=== PATIENT | male | born 1985 | race Caucasian/White ===

== ENCOUNTER 2023-07-18 11:34 | Outpatient (CLI) | payer SELFPAY ==
--- NOTE | 2023-07-18 11:50 | XRR_ITS ---
PROCEDURE INFORMATION: Exam: XR Right Ankle Exam date and time: 07/18/2023 11:56 AM Age: 37 years old Clinical indication: Pain; Swelling, leg or foot; Ankle; Right; Patient HX: Swollen for about 1 week; Additional info: Pain in R ankle TECHNIQUE: Imaging protocol: Radiologic exam of the right ankle. Views: 3 or more views. COMPARISON: No relevant prior studies available. FINDINGS: Bones/joints: Osseous structures are intact. No fracture or malalignment. Joint surfaces preserved. Soft tissues: Generalized soft tissue swelling adjacent to the mediolateral malleolus. XR/XR ankle RT min 3V* [id number] IMPRESSION: No acute bony abnormalities.
== END 2023-07-18 11:35 | disposition home or self-care (01) ==
PROVIDERS: Visit Provider Family Medicine
DX: M25.571 Pain in right ankle and joints of right foot (principal)
CPT/HCPCS: 73610

== ENCOUNTER 2024-09-05 07:12 | Emergency (ER) | payer SELFPAY ==
[2024-09-05 07:21] VITALS: BP 158/115; PULSE 92; RESP 17; TEMP 36.8; O2SAT 97; BMI 35.9
[2024-09-05 07:50] LABS: Basophils # 0.1 10^3/uL (0.0-0.1); Eosinophils # 0.3 10^3/uL (0.0-0.8); Eosinophils % 2.5 %; Hematocrit 48.8 % (37-53); Lymphocytes # 2.5 10^3/uL (0.8-4.8); Lymphocytes % 22.4 %; Mean Corpuscular HGB Conc 34.4 g/dL (30-55); Mean Corpuscular Hemoglobin 28.5 pg (27-33); Mean Corpuscular Volume 82.9 fl (82-101); Mean Platelet Volume 10.1 fL (7.4-10.4); Monocytes % 8.9 %; Neutrophils % 64.1 %; Nucleated Red Blood Cells % 0 %; Platelet Count 244 10^3/cmm (157-399); Red Blood Count 5.89 10^6/uL (3.85-5.65); Red Cell Distribution Width 13.2 % (12.1-15.1); White Blood Count 11.08 10^3/uL (3.29-11.43)
[2024-09-05 08:00] VITALS: BP 174/101; PULSE 90; O2SAT 94
--- NOTE | 2024-09-05 08:03 | ED_ITS ---
HPI - Back Pain/Injury 2 General: Chief Complaint: Back Pain/Injury Stated Complaint: kidney problems Time Seen by Provider: 09/05/24 07:18 History of Present Illness: 39-year-old male with a history of nephr olithiasis presents emergency room complaining of left-sided flank pain radiating into the left lower quadrant. Worse when he urinates when he bears down to urinate. He does not have any hematuria. He was seen a week ago diagnosed as having a UTI and started on amoxicillin. Despite this he continues to have worsening symptoms and increasing pain. He was diagnosed also recently as being diabetic and started on metformin Associated symptoms: Reports dysuria; Deny abdominal pain, chills, fever(s), hematuria or urinary urgency Related Data Home Medications Medication Instructions Recorded Confirmed allopurinol 100 mg tablet 100 mg PO DAILY 09/05/24 09/05/24 amlodipine 5 mg tablet 5 mg PO DAILY 09/05/24 09/05/24 amoxicillin 875 mg-potassium 1 tab PO BID 09/05/24 09/05/24 clavulanate 125 mg tablet aspirin 81 mg tablet,delayed 81 mg PO DAILY 09/05/24 09/05/24 release (Adult Low Dose Aspirin) atorvastatin 20 mg tablet 20 mg PO DAILY 09/05/24 09/05/24 lisinopril 40 mg tablet 40 mg PO DAILY 09/05/24 09/05/24 metformin 500 mg tablet,extended 500 mg PO BID 09/05/24 09/05/24 release 24 hr Previous Rx's Medication Instructions Recorded diclofenac sodium 75 mg 75 mg PO Q12H PRN pain #20 tabs 09/05/24 tablet,delayed release prednisone 20 mg tablet 20 mg PO TID #15 tabs 09/05/24 tizanidine 4 mg tablet 4 mg PO Q6H PRN muscle spasticity 09/05/24 #20 tabs Allergies Allergy/AdvReac Type Severity Reaction Status Date / Time No Known Allergies Allergy Verified 09/05/24 07:24 Review of Systems 2 Const: Denies: fever(s) or chills Card: Denies: chest pain Resp: Denies: dyspnea GI: Denies: abdominal pain : Reports: flank pain, difficulty urinating and dysuria; Denies: urinary frequency, urinary urgency or hematuria Musc: Denies: neck pain or back pain Skin/Breast: Denies: rash Physical Exam 2 Const: COMMON NORMALS: no acute distress GENERAL APPEARANCE: cooperative and comfortable ORIENTATION/CONSCIOUSNESS: Yes awake, Yes oriented to person, Yes oriented to place and Yes oriented to time HENMT: COMMON NORMALS: normocephalic, atraumatic and hearing grossly normal bilaterally HEAD & SCALP: normocephalic and atraumatic Resp: COMMON NORMALS: normal respiratory effort, No retractions, No use of accessory muscles and clear to auscultation bilaterally AUSCULTATION: clear to auscultation bilaterally Cardio: COMMON NORMALS: regular rate, regular rhythm and No murmurs present (Cardio) RATE: regular rate RHYTHM: regular rhythm GI: COMMON NORMALS: Soft to palpation and No hepatosplenomegaly present A USCULTATION: Yes normoactive bowel sounds PALPATION: Yes Soft to palpation, No Tenderness to palpation present (GI), No Guarding due to palpation present (GI) and Yes No hepatosplenomegaly present Extremity: COMMON NORMALS: normal to inspection, capillary refill normal, no clubbing, cyanosis or edema, no calf tenderness and no pedal edema Neuro: SENSORIUM/ORIENTATION: Yes oriented to person, Yes oriented to place and Yes oriented to time Skin: COMMON NORMALS: no rashes or lesions noted GENERAL SKIN EXAM: no rashes or lesions noted Course 2 Vital Signs: Vital signs: Vital Signs Temperature 98.2 F 09/05/24 07:21 Pulse Rate 75 09/05/24 10:20 Respiratory Rate 17 09/05/24 08:14 Blood Pressure 149/97 09/05/24 10:20 Pulse Oximetry 95 09/05/24 10:20 Oxygen Delivery Me thod Room Air 09/05/24 08:00 MDM - Back Pain/Injury Medical Decision Making No nephrolithiasis no UTI. I think patient's symptoms are due to musculoskeletal. Will discharge patient home on steroid taper muscle relaxers and anti-inflammatories follow-up with primary care if not improving Medical Records I reviewed the patient's medical records. Labs I reviewed the patient's lab results. 09/05/24 07:31 09/05/24 07:31 Radiology Impressions Abdomen/Pelvis CT 09/05/24 08:08 IMPRESSION: 1. Nephrolithiasis on the right. 2. Fatty infiltration of the liver. 3. Borderline splenomegaly. Laboratory Results WBC 11.08 10^3/uL (3.29-11.43) 09/05/24 07:31 RBC 5.89 10^6/uL (3.85-5.65) H 09/05/24 07:31 Hgb 16.80 g/dL (11.27-16.99) 09/05/24 07:31 Hct 48.8 % (37-53) 09/05/24 07:31 MCV 82.9 fl (82-101) 09/05/24 07:31 MCH 28.5 pg (27-33) 09/05/24 07:31 MCHC 34.4 g/dL (30-55) 09/05/24 07:31 RDW 13.2 % (12.1-15.1) 09/05/24 07:31 Plt Count 244 10^3/cmm (157-399) 09/05/24 07:31 MPV 10.1 fL (7.4-10.4) 09/05/24 07:31 Neut % (Auto) 64.1 % 09/05/24 07:31 Lymph % (Auto) 22.4 % 09/05/24 07:31 [place] % (Auto) 8.9 % 09/05/24 07:31 Eos % (Auto) 2.5 % 09/05/24 07:31 Baso % (Auto) 1.0 % 09/05/24 07:31 Neut # (Auto) 7.10 10^3/uL (1.8-7.7) 09/05/24 07:31 Lymph # (Auto) 2.5 10^3/uL (0.8-4.8) 09/05/24 07:31 [place] # (Auto) 1.0 10^3/uL (0.2-0.9) H 09/05/24 07:31 Eos # (Auto) 0.3 10^3/uL (0.0-0.8) 09/05/24 07:31 Baso # (Auto) 0.1 10^3/uL (0.0-0.1) 09/05/24 07:31 Nucleated RBC % (auto) 0 % 09/05/24 07:31 Nucleated RBCs # 0.0 /100WBC 09/05/24 07:31 Sodium 135 mmol/L (136-145) L 09/05/24 07:31 Potassium 4.2 mmol/L (3.5-5.1) 09/05/24 07:31 Chloride 98 mmol/L (98-107) 09/05/24 07:31 Carbon Dioxide 25 mmol/L (22-29) 09/05/24 07:31 Anion Gap 16.2 (5-19) 09/05/24 07:31 BUN 21 mg/dL (6-20) H 09/05/24 07:31 Creatinine 0.7 mg/dL (0.7-1.2) 09/05/24 07:31 GFR Calculation 124.3 mL/min (90-130) 09/05/24 07:31 Glucose 326 mg/dL (65-115) H 09/05/24 07:31 Calculated Osmolality 296 mOsm/kg (285-295) H 09/05/24 07:31 Calcium 9.2 mg/dL (8.5-10.5) 09/05/24 07:31 Total Bilirubin 0.4 mg/dL (0.15-1.2) 09/05/24 07:31 AST 32 U/L (0-40) 09/05/24 07:31 ALT 57 U/L (0-41) H 09/05/24 07:31 Alkaline Phosphatase 105 U/L (40-130) 09/05/24 07:31 Total Protein 6.6 g/dL (6.6-8.7) 09/05/24 07:31 Albumin 4.1 g/dL (3.5-5.2) 09/05/24 07:31 Globulin 2.5 g/dL (1.3-4.6) 09/05/24 07:31 Urine Color Yellow (Yellow) 09/05/24 07:43 Urine Appearance Clear (CLEAR) 09/05/24 07:43 Urine pH 6.5 (5-7) 09/05/24 07:43 Ur Specific [place] 1.022 (1.005-1.030) 09/05/24 07:43 Urine Protein Trace (Negative) A 09/05/24 07:43 Urine Glucose (UA) 3+ (Normal) H 09/05/24 07:43 Urine Ketones Trace (Negative) 09/05/24 07:43 Urine Blood Negative (Negative) 09/05/24 07:43 Urine Nitrate Negative (Negative) 09/05/24 07:43 Urine Bilirubin Negative (Negative) 09/05/24 07:43 Urine Urobilinogen 0.2 mg/dL (Negative) 09/05/24 07:43 Ur Leukocyte Esterase Negative (Negative) 09/05/24 07:43 Urine RBC 0-2 /hpf (0-2) 09/05/24 07:43 Urine WBC 0-5 /hpf (0-5) 09/05/24 07:43 Ur Squamous Epith Cells 0-5 /hpf (0-5) 09/05/24 07:43 Amorphous Sediment Not Reportable 09/05/24 07:43 Urine Bacteria None seen /hpf (NONE) 09/05/24 07:43 Hyaline Casts 0-4 /lpf H 09/05/24 07:43 All radiology interpretation(s) finalized by discharge Discharge Plan Discharge Patient Disposition: Home Clinical Impression: Strain of lumbar region Condition: Stable Prescriptions: New tizanidine 4 mg tablet 4 mg PO Q6H PRN (Reason: muscle spasticity) Qty: 20 0RF Rx Instructions: do not exceed 3 doses per 24 hrs prednisone 20 mg tablet 20 mg PO TID Qty: 15 0RF Rx Instructions: 1 p.o. 3 times daily x3 days, 1 p.o. twice daily x2 days, 1 p.o. daily x2 days diclofenac sodium 75 mg tablet,delayed release (DR/EC) 75 mg PO Q12H PRN (Reason: pain) Qty: 20 0RF No Action atorvastatin 20 mg tablet 20 mg PO DAILY amlodipine 5 mg tablet 5 mg PO DAILY allopurinol 100 mg tablet 100 mg PO DAILY aspirin [Adult Low Dose Aspirin] 81 mg tablet,delayed release (DR/EC) 81 mg PO DAILY lisinopril 40 mg tablet 40 mg PO DAILY metformin 500 mg tablet extended release 24 hr 500 mg PO BID amoxicillin-pot clavulanate 875-125 mg tablet 1 tab PO BID Discharge Orders: Discharge ED (Routine); Ordered 09/05/24 Ordered By: Slava Bauer Discharge Diet: Usual diet Discharge Activity: Increase activity as tolerated Patient Instructions: Acute Low Back Pain (ED), Opioid Safety, Pain Management Activity Restrictions/Additional Instructions: Thank you for choosing [facility] for your healthcare needs today. It is very important that you follow up as instructed or that you return to the Emergency Department should you have concerns or if your condition changes or worsens in any way. Labs and imaging reviewed no acute findings there is no blood in the urine no sign of ureteral lithiasis (kidney stone) as a cause of pain. Coding Level of Care Code ED Whale Trainer for Jose Antonio Thomas
[2024-09-05 08:07] LABS: Alanine Aminotransferase 57 U/L (0-41); Albumin Level 4.1 g/dL (3.5-5.2); Alkaline Phosphatase 105 U/L (40-130); Anion Gap 16.2 (5-19); Aspartate Amino Transferase 32 U/L (0-40); Blood Urea Nitrogen 21 mg/dL (6-20); Calcium 9.2 mg/dL (8.5-10.5); Carbon Dioxide 25 mmol/L (22-29); Chloride 98 mmol/L (98-107); Creatinine Clr Calc Pharmacy 175.1341; Globulin 2.5 g/dL (1.3-4.6); Glomerular Filtration Rate 124.3 mL/min (90-130); Glucose 326 mg/dL (65-115); Osmolality Calculated 296 mOsm/kg (285-295); Potassium 4.2 mmol/L (3.5-5.1); Sodium 135 mmol/L (136-145); Total Bilirubin 0.4 mg/dL (0.15-1.2); Total Protein 6.6 g/dL (6.6-8.7)
--- NOTE | 2024-09-05 08:08 | CTR_ITS ---
PROCEDURE INFORMATION: Exam: CT Abdomen And Pelvis Without Contrast Exam date and time: 09/05/2024 8:21 AM Age: 39 years old Clinical indication: Abdominal pain; Flank; Lower; Additional info: Flank pain. PT states he was diagnosed with a UTI a week and a half ago. PT states he has had increase in lower back pain since being diagnosed. PT denies any urinary issues. TECHNIQUE: Imaging protocol: Computed tomography of the abdomen and pelvis without contrast. Radiation optimization: All CT scans at this facility use at least one of these dose optimization techniques: automated exposure control; mA and/or kV adjustment per patient size (includes targeted exams where dose is matched to clinical indication); or iterative reconstruction. COMPARISON: CR XR chest 2V* [id number] 07/12/2019 12:33 PM RADIATION DOSE METRICS: Total DLP (mGy-cm): 1020.46 FINDINGS: Lungs: Lung bases are clear as visualized. Liver: There is diffuse fatty infiltration of the liver. The liver is otherwise normal. Gallbladder and biliary ducts: Normal. No calcified stones. No ductal dilation. Pancreas: Normal. No ductal dilation. Spleen: The spleen is borderline enlarged measuring 12.2 cm in maximal dimension. Adrenal glands: Normal. No mass. Kidneys and ureters: Nonobstructing renal calculus is noted on the right. The kidneys otherwise have a normal noncontrast appearance. No hydronephrosis is noted. No ureteral calculi are identified. Stomach and bowel: Unremarkable. No obstruction. No mucosal thickening. Appendix: No evidence of appendicitis. Intraperitoneal space: Unremarkable. No free air. No significant fluid collection. Vasculature: The aorta is normal in caliber. There is calcified plaque involving the aorta and its branch vessels. Lymph nodes: Unremarkable. No enlarged lymph nodes. Urinary bladder: Unremarkable as visualized. Reproductive: Unremarkable as visualized. Bones/joints: Unremarkable. No acute fracture. Soft tissues: There is a small fat filled periumbilical hernia. CT/CT kidney stone [id number] IMPRESSION: 1. Nephrolithiasis on the right. 2. Fatty infiltration of the liver. 3. Borderline splenomegaly.
[2024-09-05 08:14] VITALS: RESP 17
[2024-09-05] MEDS: morphine 4 mg/mL SDV 1 mL IVP (08:14)
[2024-09-05] MEDS: ketorolac 30 mg/mL INJ IVP (08:14)
[2024-09-05] MEDS: ondansetron 2 mg/ML SDV 2 mL 4 MG IVP (08:14)
[2024-09-05 08:23] LABS: Bilirubin Urine Negative (Negative); Blood Urine Negative (Negative); Glucose Urine UA 3+ (Normal); Ketones Urine Trace (Negative); Leukocyte Esterase Urine Negative (Negative); Nitrate Urine Negative (Negative); Protein Urine Trace (Negative); Specific Gravity, Urine 1.022 (1.005-1.030); Urine Appearance Clear (CLEAR); Urine Color Yellow (Yellow); Urobilinogen Urine 0.2 mg/dL (Negative); pH Urine 6.5 (5-7)
[2024-09-05 08:27] LABS: Add Urine Microscopic? YES; Bacteria Urine None Seen /hpf; Hyaline Casts Urine 0-4 /lpf; RBC Urine 0-2 /hpf (0-2); Squamous Epithelial Cell Urine 0-5 /hpf (0-5); WBC Urine 0-5 /hpf (0-5)
[2024-09-05 10:20] VITALS: BP 149/97; PULSE 75; O2SAT 95
== END 2024-09-05 10:21 | disposition home or self-care (01) ==
PROVIDERS: Emergency Provider Family Medicine
DX: S39.012A Strain of muscle, fascia and tendon of lower back, initial encounter (principal); X58.XXXA Exposure to other specified factors, initial encounter
CPT/HCPCS: 74176; 80053; 81001; 85025; 96374; 96375; 99285; J1885; J2270; J2405

== ENCOUNTER 2025-03-10 20:54 | Emergency (ER) | payer SELFPAY ==
[2025-03-10 20:58] VITALS: BP 188/106; PULSE 106; RESP 21; TEMP 36.8; O2SAT 95; BMI 33.0
[2025-03-10 21:38] VITALS: PULSE 94; O2SAT 97
[2025-03-10] MEDS: tetracaine 0.5% Op Soln 4 mL Btl 1 DROP EYE-BOTH (22:00)
--- NOTE | 2025-03-10 22:24 | W.ED.EYEPROB ---
HPI - Eye Problem General: Chief complaint: Eye Problems Stated complaint: L eye pain Time Seen by Provider: 03/10/25 21:25 History of Present Illness: Patient is a 39-year-old male seen for left eye pain. He was using a saws all to cut metal wearing safety glasses but he still felt a piece of metal fly up and catching in the left eye. This happened at roughly 2:30 PM today. He tried going to the director account management office but unfortunately the director account management was not in the office to evaluate. He comes emergency department with a tearful, painful left eye. He describes 8 of 10 pain which is worse with motion and blinking. He states that he feels a foreign body sensation at the 10 o'clock position that is worse with opening closing the eyelid. No he states vision is unaffected in the eye. He does not wear contacts and he has no allergies. Related Data Home Medications ?Medication ?Instructions ?Recorded ?Confirmed allopurinol 100 mg tablet 100 mg PO DAILY 09/05/24 09/05/24 amlodipine 5 mg tablet 5 mg PO DAILY 09/05/24 09/05/24 amoxicillin 875 mg-potassium 1 tab PO BID 09/05/24 09/05/24 clavulanate 125 mg tablet aspirin 81 mg tablet,delayed 81 mg PO DAILY 09/05/24 09/05/24 release (Adult Low Dose Aspirin) atorvastatin 20 mg tablet 20 mg PO DAILY 09/05/24 09/05/24 lisinopril 40 mg tablet 40 mg PO DAILY 09/05/24 09/05/24 metformin 500 mg tablet,extended 500 mg PO BID 09/05/24 09/05/24 release 24 hr Previous Rx's ?Medication ?Instructions ?Recorded diclofenac sodium 75 mg 75 mg PO Q12H PRN pain #20 tabs 09/05/24 tablet,delayed release prednisone 20 mg tablet 20 mg PO TID #15 tabs 09/05/24 tizanidine 4 mg tablet 4 mg PO Q6H PRN muscle spasticity 09/05/24 #20 tabs moxifloxacin 0.5 % eye drops 1 drp ophthalmic (eye) TID 03/10/25 abrasion 3 days #3 mL Allergies Allergy/AdvReac Type Severity Reaction Status Date / Time No Known Allergies Allergy Verified 09/05/24 07:24 Physical Exam Const: COMMON NORMALS: no acute distress, patient oriented x3 and alert HENMT: COMMON NORMALS: normocephalic and atraumatic HEAD & SCALP: normocephalic and atraumatic Eye: OTHER: Left eye is somewhat injected and excessively tearing. No foreign body noted. 2 mm circular corneal abrasion noted at the 6 o'clock position just above the limbus. Lids were everted and swept and no foreign body noted. No other corneal abrasions noted on fluorescein exam. Negative Ana Maria sign. Vision intact and stable Resp: COMMON NORMALS: normal respiratory effort and No retractions Cardio: COMMON NORMALS: regular rate, regular rhythm and No murmurs present (Cardio) RATE: regular rate RHYTHM: regular rhythm GI: COMMON NORMALS: Normal to inspection, nondistended, normoactive bowel sounds present, Soft to palpation and non-tender PALPATION: Yes Soft to palpation Neuro: COMMON NORMALS: patient oriented x3 SENSORIUM/ORIENTATION: Yes alert Skin: COMMON NORMALS: no rashes or lesions noted GENERAL SKIN EXAM: no rashes or lesions noted Course Vital Signs: Vital signs: Vital Signs Temperature 98.2 F 03/10/25 20:58 Pulse Rate 92 03/10/25 23:11 Respiratory Rate 21 H 03/10/25 20:58 Blood Pressure 145/111 03/10/25 23:11 Pulse Oximetry 98 03/10/25 23:11 Oxygen Delivery Me thod Room Air 03/10/25 20:58 MDM - Eye Problem Medical Decision Making Patient remained hemodynamically stable throughout ED course. I appreciate a corneal abrasion but was not able to visualize a foreign body for removal. Symptoms are much better with tetracaine. He will be given a prescription for moxifloxacin and close follow-up to ophthalmology in the morning. I spoke with on-call pathology who graciously agrees to visit with the patient tomorrow morning at 8 AM. He will be given a work note so that he can facilitate this visit. Patient shows good understanding and agrees to the plan No radiology studies performed this visit Discharge Plan Discharge Patient Disposition: Home Clinical Impression: Corneal abrasion Condition: Stable Prescriptions: New moxifloxacin 0.5 % drops 1 drp ophthalmic (eye) TID 3 Days Qty: 3 0RF No Action atorvastatin 20 mg tablet 20 mg PO DAILY amlodipine 5 mg tablet 5 mg PO DAILY allopurinol 100 mg tablet 100 mg PO DAILY aspirin [Adult Low Dose Aspirin] 81 mg tablet,delayed release (DR/EC) 81 mg PO DAILY lisinopril 40 mg tablet 40 mg PO DAILY metformin 500 mg tablet extended release 24 hr 500 mg PO BID amoxicillin-pot clavulanate 875-125 mg tablet 1 tab PO BID tizanidine 4 mg tablet 4 mg PO Q6H PRN (Reason: muscle spasticity) Qty: 20 0RF Rx Instructions: do not exceed 3 doses per 24 hrs prednisone 20 mg tablet 20 mg PO TID Qty: 15 0RF Rx Instructions: 1 p.o. 3 times daily x3 days, 1 p.o. twice daily x2 days, 1 p.o. daily x2 days diclofenac sodium 75 mg tablet,delayed release (DR/EC) 75 mg PO Q12H PRN (Reason: pain) Qty: 20 0RF Discharge Orders: Discharge ED (Routine); Ordered 03/10/25 Ordered By: Cesar Arauz Referrals: Mya Armenta, ENVIRONMENTAL SERVICES PROJECT MANAGER [Primary Care Provider] - Marito Arauz [Physician] - (spoke with dr arauz, will see in clinic 03/11 at 0800) Patient Instructions: Corneal Abrasion (ED) Activity Restrictions/Additional Instructions: I spoke with Dr. Arauz the [facility] director who says he can get you in his clinic tomorrow morning at 8 AM to make sure your eye is healing appropriately and there is no foreign body I was unable to detect. Stand Alone Forms: Work/School Release Print Language: Setswana Coding Level of Care Code ED Student Teacher for Jose Antonio Thomas
[2025-03-10] MEDS: fluorescein 1 mg Strip EYE-BOTH (23:10)
[2025-03-10 23:11] VITALS: BP 145/111; PULSE 92; O2SAT 98
== END 2025-03-10 23:13 | disposition home or self-care (01) ==
PROVIDERS: Emergency Provider Student in an Organized Health Care Education/Training Program; PCP Nurse Practitioner Family
DX: S05.02XA Injury of conjunctiva and corneal abrasion without foreign body, left eye, initial encounter (principal); Z79.82 Long term (current) use of aspirin; Z79.84 Long term (current) use of oral hypoglycemic drugs; X58.XXXA Exposure to other specified factors, initial encounter
CPT/HCPCS: 99283; J9999

== ENCOUNTER 2025-07-26 19:58 | Inpatient (IN) | payer SELFPAY ==
[2025-07-26 20:12] VITALS: BP 128/72; PULSE 106; RESP 22; TEMP 37.7; O2SAT 98; BMI 32.3
[2025-07-26 21:06] LABS: Glucose Urine UA Trace (Normal); Nitrate Urine Negative (Negative)
[2025-07-26 21:09] LABS: Add Urine Microscopic? YES
[2025-07-26 21:22] LABS: Specific Gravity, Urine 1.032 (1.005-1.030)
[2025-07-26 21:23] LABS: Hematocrit 41.0 % (37-53); Hemoglobin 14.30 g/dL (11.27-16.99); Mean Corpuscular HGB Conc 34.9 g/dL (30-55); Mean Corpuscular Hemoglobin 27.6 pg (27-33); Mean Corpuscular Volume 79.2 fl (82-101); Nucleated Red Blood Cells % 0 %; Platelet Count 240 10^3/cmm (157-399); Red Blood Count 5.18 10^6/uL (3.85-5.65); White Blood Count 16.12 10^3/uL (3.29-11.43)
[2025-07-26 21:23] LABS: UA Slide Review UA Slide Review Perf
[2025-07-26 21:59] LABS: Alanine Aminotransferase 46 U/L (0-41); Albumin Level 3.6 g/dL (3.5-5.2); Alkaline Phosphatase 176 U/L (40-130); Anion Gap 17.4 (5-19); Aspartate Amino Transferase 28 U/L (0-40); Blood Urea Nitrogen 9 mg/dL (6-20); Calcium 9.3 mg/dL (8.5-10.5); Carbon Dioxide 25 mmol/L (22-29); Chloride 91 mmol/L (98-107); Creatinine Clr Calc Pharmacy 164.5451; Globulin 3.3 g/dL (1.3-4.6); Glucose 319 mg/dL (65-115); Lipase 27 U/L (13-60); Osmolality Calculated 281 mOsm/kg (285-295); Potassium 3.4 mmol/L (3.5-5.1); Sodium 130 mmol/L (136-145); Total Protein 6.9 g/dL (6.6-8.7)
--- NOTE | 2025-07-26 23:12 | ED_ITS ---
HPI - Male Genitourinary 2 General: Chief complaint: Urogenital-Male Stated complaint: Possible kidney stones. hurts Lt side back and Time Seen by Provider: 07/26/25 23:07 History of Present Illness: Patient is a 40-year-old male with history of renal colic and urolithiasis, however the last one was 5 years ago, reports to the emergency room with passing 4 stones this week. Patient passed a stone just prior to arrival he states. He has fever, chills, nausea, left flank pain. He denies any dysuria. Urine analysis shows pyuria. There is no hematuria. He has not had any nausea or vomiting since he has been here. Temperature in triage 99.8 ?F. Associated symptoms: Reports dysuria and nausea; Deny hematuria or vomiting Related Data Home Medications ?Medication ?Instructions ?Recorded ?Confirmed aspirin 81 mg tablet,delayed 81 mg PO DAILY 09/05/24 0 07/27/25 release (Adult Low Dose Aspirin) atorvastatin 20 mg tablet 20 mg PO DAILY 09/05/2407/14 lisinopril 40 mg tablet 40 mg PO DAILY 09/05/2407/14 metformin 500 mg tablet,extended 500 mg PO BID 4 07/27/25 release 24 hr Previous Rx's ?Medication ?Instructions ?Recorded tizanidine 4 mg tablet 4 mg PO Q6H PRN muscle spast icity 09/05/24 #20 tabs apixaban 5 mg tablet (Eliquis) 5 mg PO BID 30 days #60 tabs 07/28/25 ciprofloxacin HCl 500 mg tablet 500 mg PO BID 7 days # 14 tabs 07/29/25 Allergies Allergy/AdvReac Type Severity Reaction Status Date / Time peanut butter Allergy ALGY-Rash Uncoded 07/27/25 03:25 Review of Systems 2 Const: Denies: fever(s) or chills Card: Denies: chest pain Resp: Denies: dyspnea GI: Reports: nausea; Denies: abdominal pain or vomiting : Reports: flank pain, difficulty urinating and dysuria; Denies: urinary frequency, urinary urgency or hematuria Musc: Denies: neck pain or back pain Skin/Breast: Denies: rash Neuro: Denies: headache(s), numbness in extremities, weakness in extremities, lack of coordination or difficulty walking Physical Exam 2 Const: COMMON NORMALS: no acute distress, patient oriented x3 and alert HENMT: COMMON NORMALS: normocephalic and atraumatic HEAD & SCALP: n ormocephalic and atraumatic Resp: COMMON NORMALS: normal respiratory effort and No retractions Cardio: COMMON NORMALS: regular rate, regular rhythm and No murmurs present (Cardio) RATE: regular rate RHYTHM: regular rhythm GI: COMMON NORMALS: Normal to inspection, nondistended, normoactive bowel sounds present, Soft to palpation and non-tender PALPATION: Yes Soft to palpation : BLADDER/KIDNEY EXAM: Yes CVA tenderness on the left Back/Pelvis: GENERAL BACK: Yes CVA tenderness Neuro: COMMON NORMALS: patient oriented x3 SENSORIUM/ORIENTATION: Yes alert Skin: COMMON NORMALS: no rashes or lesions noted GENERAL SKIN EXAM: no rashes or lesions noted Course 2 Vital Signs: Vital signs: Vital Signs Temperature 97.6 F 07/29/25 08:03 Pulse Rate 71 07/29/25 08:03 Respiratory Rate 18 07/29/25 08:03 Blood Pressure 133/89 07/29/25 08:03 Pulse Oximetry 96 07/29/25 08:03 Oxygen Delivery Me thod Room Air 07/29/25 08:03 Oxygen Flow Rate 1 07/27/25 01:30 [facility] - Male Medical Decision Making Patient is 40-year-old male with history of renal colic, now reports urolithiasis he has passed x 4 since . He passed a stone just prior to admission. He complained of left flank pain. He does have pyuria on urine analysis. He will be treated with Rocephin. CT abdomen pelvis without contrast to further discern any additional findings such as obstructive uropathy was obtained. This is currently pending. Case turned over to Dr. Emery. Medical Records I reviewed the patient's medical records. Lab Data I reviewed the patient's lab results. 07/29/25 04:57 07/29/25 04:57 Radiology Impressions Abdomen/Pelvis CT 07/27/25 09:10 IMPRESSION: 1. Abnormal mixed density, mostly hypodense filling defect and expansion of left renal vein compatible with thrombosis extending for a length of 5-6 cm, extending proximally to at least mid left renal vein. Distal left renal vein and confluence with inferior vena cava appear patent. Some hypodensity, thrombosis of left testicular vein not excluded. 2. Evidence of left perinephric stranding, fluid extending inferiorly to patient's pelvis on the left side. Evidence of wall thickening and/or enhancement left renal collecting system, left renal pelvis, left ureter. Correlate for pyelo ureteritis or other process. 3. Mild diffuse wall thickening urinary bladder. Correlate for inflammation, cystitis, urinary tract and action, or other process. 4. 9-10 mm rounded soft tissue density filling defect along posterior, dependent gallbladder, possibly soft stone/sludge ball versus polyp or other lesion. Correlation with nonemergent ultrasound scan recommended. 5. Atherosclerotic disease perhaps more advanced than expected for age. Correlate for causes, risk factors for atherosclerotic disease. 6. Hepatosplenomegaly. 7. Diffuse fatty liver, hepatic steatosis. 8. Bibasilar infiltrate and/or atelectasis lung bases. 9. On the uppermost axial image, 6-7 mm subsolid nodule right lung base, probably in the lateral right middle lobe, axial series 3, image 1, partially included. Recommend CT Chest at 3-6 months to confirm persistence of the nodule. If unchanged and solid component remains < 6 mm, annual CT Chest should be performed for 5 years. (Reference: Tricia) 10. Nonobstructing stone/calculus right kidney. 11. Please see body of report for additional findings. REFERENCES: Tricia Rodriguez, et al. Guidelines for Management of Incidental Pulmonary Nodules Detected on CT Images: From the Fleischner Society 2017. Radiology. 2017;284(1):228-243. Gallbladder Ultrasound 07/28/25 10:06 IMPRESSION: 1. Quality is limited by body habitus. 2. Normal size gallbladder with stones and sludge. No wall thickening or pericholecystic fluid. No evidence for acute cholecystitis. 3. Hepatomegaly and hepatic steatosis. Chest X-Ray 07/28/25 15:38 IMPRESSION: No significant abnormality. Laboratory Results WBC 16.12 10^3/uL (3.29-11.43) H 07/26/25 21:17 RBC 5.18 10^6/uL (3.85-5.65) 07/26/25 21:17 Hgb 14.30 g/dL (11.27-16.99) 07/26/25 21:17 Hct 41.0 % (37-53) 07/26/25 21:17 MCV 79.2 fl (82-101) L 07/26/25 21:17 MCH 27.6 pg (27-33) 07/26/25 21:17 MCHC 34.9 g/dL (30-55) 07/26/25 21:17 RDW 13.2 % (12.1-15.1) 07/26/25 21:17 Plt Count 240 10^3/cmm (157-399) 07/26/25 21:17 MPV 9.9 fL (7.4-10.4) 07/26/25 21:17 Neut % (Auto) 77.7 % 07/26/25 21:17 Lymph % (Auto) 13.5 % 07/26/25 21:17 [place] % (Auto) 6.0 % 07/26/25 21:17 Eos % (Auto) 0.7 % 07/26/25 21:17 Baso % (Auto) 0.5 % 07/26/25 21:17 Neut # (Auto) 12.52 10^3/uL (1.8-7.7) H 07/26/25 21:17 Lymph # (Auto) 2.2 10^3/uL (0.8-4.8) 07/26/25 21:17 [place] # (Auto) 1.0 10^3/uL (0.2-0.9) H 07/26/25 21:17 Eos # (Auto) 0.1 10^3/uL (0.0-0.8) 07/26/25 21:17 Baso # (Auto) 0.1 10^3/uL (0.0-0.1) 07/26/25 21:17 Nucleated RBC % (auto) 0 % 07/26/25 21:17 Nucleated RBCs # 0.0 /100WBC 07/26/25 21:17 Sodium 130 mmol/L (136-145) L 07/26/25 21:17 Potassium 3.4 mmol/L (3.5-5.1) L 07/26/25 21:17 Chloride 91 mmol/L (98-107) L 07/26/25 21:17 Carbon Dioxide 25 mmol/L (22-29) 07/26/25 21:17 Anion Gap 17.4 (5-19) 07/26/25 21:17 BUN 9 mg/dL (6-20) 07/26/25 21:17 Creatinine 0.7 mg/dL (0.7-1.2) 07/26/25 21:17 GFR Calculation 123.7 mL/min (90-130) 07/26/25 21:17 Glucose 319 mg/dL (65-115) H 07/26/25 21:17 Calculated Osmolality 281 mOsm/kg (285-295) L 07/26/25 21:17 Calcium 9.3 mg/dL (8.5-10.5) 07/26/25 21:17 Total Bilirubin 0.9 mg/dL (0.15-1.2) 07/26/25 21:17 AST 28 U/L (0-40) 07/26/25 21:17 ALT 46 U/L (0-41) H 07/26/25 21:17 Alkaline Phosphatase 176 U/L (40-130) H 07/26/25 21:17 C-Reactive Protein 99.1 mg/L (0.0-4.9) H 07/26/25 21:17 Total Protein 6.9 g/dL (6.6-8.7) 07/26/25 21:17 Albumin 3.6 g/dL (3.5-5.2) 07/26/25 21:17 Globulin 3.3 g/dL (1.3-4.6) 07/26/25 21:17 Lipase 27 U/L (13-60) 07/26/25 21:17 Urine Color Dark yellow (Yellow) A 07/26/25 20: Urine Appearance Turbid (CLEAR) A 07/26/25 20:51 Urine pH 6.0 (5-7) 07/26/25 20:51 Ur Specific [place] 1.032 (1.005-1.030) H 07/26/25 20:51 Urine Protein 2+ (Negative) A 07/26/25 20: Urine Glucose (UA) Trace (Normal) H 07/26/25 20:51 Urine Ketones Trace (Negative) 07/26/25 20:51 Urine Blood Non-haemolysed trace (Negative) 07/26/25 20:51 Urine Nitrate Negative (Negative) 07/26/25 20: Urine Bilirubin Negative (Negative) 07/26/25 20:51 Urine Urobilinogen 1.0 mg/dL (Negative) 07/26/25 20:51 Ur Leukocyte Esterase 2+ (Negative) A 07/26/25 20:51 Urine RBC 0-2 /hpf (0-2) 07/26/25 20:51 Urine WBC >100 /hpf (0-5) H 07/26/25 20:51 Ur Squamous Epith Cells 0-5 /hpf (0-5) 07/26/25 20:51 Amorphous Sediment Not Reportable 07/26/25 20:51 Urine Bacteria 4+ /hpf (NONE) H 07/26/25 20:51 Hyaline Casts 3.01 /lpf 07/26/25 20:51 All radiology interpretation(s) finalized by discharge Discharge Plan Discharge Patient Disposition: Admitted As Inpatient Admit Provider: Michelle Colon Clinical Impression: Renal colic on left side, Pyuria, Leukocytosis Condition: Stable Discharge Diet: Full LIquid Coding Level of Care Code ED Supply Person for Jose Antonio Thomsa
[2025-07-26 23:15] VITALS: BP 131/76; PULSE 104; O2SAT 96
--- NOTE | 2025-07-26 23:29 | CTR_ITS ---
PROCEDURE INFORMATION: Exam: CT Abdomen And Pelvis Without Contrast Exam date and time: 07/27/2025 12:05 AM Age: 40 years old Clinical indication: Abdominal pain; C/O left flank pain. History of pig tail ureteral stent placement. ; Additional info: Renal colic TECHNIQUE: Imaging protocol: Computed tomography of the abdomen and pelvis without contrast. Radiation optimization: All CT scans at this facility use at least one of these dose optimization techniques: automated exposure control; mA and/or kV adjustment per patient size (includes targeted exams where dose is matched to clinical indication); or iterative reconstruction. COMPARISON: CT kidney stone [id number] 09/05/2024 8:21 AM RADIATION DOSE METRICS: Total DLP (mGy-cm): 929.54 FINDINGS: Lungs: Moderate bibasilar atelectasis. Right basilar granulomata. Heart: Heart size is within normal limits. There is no pericardial effusion or pericardial thickening. Liver: There is diffuse decreased attenuation of the hepatic parenchyma consistent with fatty infiltration. The liver is enlarged. Gallbladder and biliary ducts: Gallbladder is contracted. Gallstones are identified within the gallbladder. There is no evidence of cholelithiasis. The liver is otherwise normal. There are no hepatic masses identified. Pancreas: The pancreas is normal. Spleen: The spleen is normal. Adrenal glands: The adrenal glands are normal. Kidneys and ureters: 6 mm right mid renal calculus. No left renal calcifications. No hydronephrosis. Hyperdensity within the left renal vein likely reflecting renal vein thrombosis. There or associated moderate left perinephric changes. Stomach and bowel: Mild colonic diverticulosis without diverticulitis. There is no large or small bowel obstruction. There is no evidence of bowel wall thickening. Appendix: A normal appendix is identified. Intraperitoneal space: No inflammatory changes are identified. There is no free fluid or fluid collection seen. There is no pneumoperitoneum. Vasculature: Atherosclerotic calcifications of the aorta are present. No aneurysm is identified. Lymph nodes: Mildly prominent bilateral inguinal lymph nodes. No enlarged lymph nodes are identified. Urinary bladder: The bladder is unremarkable. Reproductive: The prostate is grossly unremarkable. Bones/joints: No acute osseous abnormalities are seen. Soft tissues: Tiny periumbilical hernia containing only fat. Small bilateral inguinal hernias containing only fat are present. CT/CT kidney stone [id number] IMPRESSION: 1. Hyperdensity within the left renal vein likely reflecting renal vein thrombosis. There are associated moderate left perinephric changes. Recommend further evaluation with contrast-enhanced CT. 2. Other nonemergent findings above. COMMENTS: Consistent with the [employer]'s Incidental Findings Committee white paper (J Am Di Radiol 2018): Any incidental renal lesion less than 1 cm or classified as too small to characterize, or any incidental cystic renal lesion characterized as simple-appearing, is likely benign. No follow-up imaging is recommended for these lesions per consensus recommendations based on imaging criteria.
[2025-07-27] VITALS (14 sets, daily range): BP systolic 113–164; BP diastolic 69–102; PULSE 79–104; RESP 17–19; TEMP 36.5–38.9; O2SAT 94–98; BMI 33.7
[2025-07-27] MEDS: ondansetron 2 mg/ML SDV 2 mL 4 MG IVP (00:17)
[2025-07-27] MEDS: cefTRIAXone 1,000 mg SDV 1000 MG IVP (00:17)
[2025-07-27] MEDS: morphine 4 mg/mL SDV 1 mL IVP ×3 (02:20→23:50)
--- NOTE | 2025-07-27 03:02 | P.HP_ITS ---
Providers/Chief Complaint 2 Admitting Physician: SHRUTHI TUTTLE DO--- patient seen and evaluated after 12 midnight Primary Care Provider: Mya Armenta Chief Complaint: Possible kidney stones. hurts Lt side back and History of Present Illness Mikhail Alford is a 40 year old male with medical history significant for hyperlipidemia, hypertension, diabetes type 2, history of kidney stone 6 years ago and another in the last 1 week where the patient had passed 4 kidney stones within the last 7 days. Patient pain had been characterized by left flank pain radiating into the left groin. Patient came to the emergency room because of excruciating pain seeking optimization of care and evaluation. Patient had not taken any of the stones to any provider to find out what kind of stone he has been making. Patient denies any febrile illness. In the emergency room this morning patient had undergone CT scan with renal protocol looking for stone there was not. However the out was finding of left renal vein thrombosis likely reactive and secondary to infection. Urinalysis was significant for greater than 100 WBC. There was leukocytosis of 16,000. He has high inflammatory markers of C-reactive protein of 99. Patient received a gram of ceftriaxone antibiotics in the emergency room. I have seen and evaluated patient he is in much excruciating pain I have initiated anti-inflammatory using Toradol 30 mg IV Q6 scheduled not to exceed for 5 days and then the is morphine 4 mg IV every 4 hours as needed for breakthrough pain. Must continue to treat and follow inflammatory markers for care. Patient had received therapeutic Lovenox in the emergency room and followed up with patient to be on plain heparin drip for now and this can be transitioned to Eliquis if appropriate in the next couple of days at discharge for the renal vein thrombosis.. Review of Systems 2 Narrative: Stain review upon 10 organ reviewed we are only significant for renal system disorder otherwise unremarkable. Medications/Allergies Home Medications ?Medication ?Instructions ?Recorded ?Confirmed ?Last Taken ?Type aspirin 81 mg tablet,delayed 81 mg PO DAILY 09/05/24 0 07/27/25 07/26/25 08:00 History release (Adult Low Dose Aspirin) atorvastatin 20 mg tablet 20 mg PO DAILY 09/05/2407/1407/26/25 08:00 History lisinopril 40 mg tablet 40 mg PO DAILY 09/05/2407/1407/26/25 08:00 History metformin 500 mg tablet,extended 500 mg PO BID 4 07/27/25 07/26/25 08:00 History release 24 hr tizanidine 4 mg tablet 4 mg PO Q6H PRN muscle spast icity 09/05/24 07/27/25 Unknown Rx #20 tabs Allergies Allergy/AdvReac Type Severity Reaction Status Date / Time peanut butter Allergy ALGY-Rash Uncoded 07/27/25 03:25 Vitals/I&O/Wt Last Vital Signs Temp 99.8 F H 07/26/25 20:12 Pulse 87 07/27/25 02:21 Resp 17 07/27/25 02:20 BP 113/69 07/27/25 02:21 Pulse Ox 94 07/27/25 02:21 O2 Del Method Room Air 07/27/25 02:21 O2 Flow Rate 1 07/27/25 01:30 07/26/25 07/26/25 07/27/25 14:59 22:59 06:59 Intake Total 1000 / 1000 Balance 1000 / 1000 Weight last 48 hrs Weight 102.058 kg Physical Exam 2 Narrative: Patient looks to be in pain but able to get out of the stretcher and walk not having antalgic gait. HEENT normocephalic/atraumatic neck neck is supple cardiovascular heart rate is regular lungs are clear abdomen is soft nontender nondistended unremarkable extremities are intact. No edema has good pulses neurology has no focality lab studies lab studies reviewed and noted significant for leukocytosis with elevated inflammatory markers likely C-reactive protein with infected urine. Data 07/27/25 02:45 07/26/25 21:17 Micro: Microbiology 07/27/25 02:49 Blood Culture - Preliminary Blood SPECIMEN COLLECTED 07/27/25 02:45 Blood Culture - Preliminary Blood SPECIMEN COLLECTED A&P Assessment and plan 1. Acute pyelonephritis: 2. Left flank pain: 3. Thrombosis vein, renal: 4. Kidney calculi: 5. Diabetes type 2: 6. Hyperlipidemia: 7. Hypertension: Plan: #1 Acute pyelonephritis - Admit to inpatient on [facility] floor - Initiate IV antibiotics, first dose given in the emergency room - IV hydration to follow - Pain management with anti-inflammatory using Toradol 30 mg Q6 not to exceed 5 days - Continue morphine 4 mg IV every 4 hours for breakthrough pain #2 Left flank pain with radiation to the left groin - Features of kidney stone - Patient had been passing stone for the past 7 days to a total of 4 stones - Must continue to treat and care with IV fluid and pain management - CT with renal protocol at the time of presentation did not find any stone likely was passed - Patient does have burden of infection was continue with IV antibiotics #3 Leukocytosis - This is secondary to pyelonephritis - Must continue to treat and optimize - Treat infection follow through with IV hydration leukocytosis will respond #4 Left renal vein thrombosis - This likely is due to all secondary to infection - Anticoagulation initiated patient is on heparin drip this can be transition into Eliquis will need to follow through with cooling off phase #5 Chronic illness such as hyperlipidemia/diabetes type 2/hypertension/recurrent kidney stone - Update patient medication and oncoming provider to restart patient home medication once nursing service Had completed updating home medication Patient had been told anytime he has kidney stone passed he needs to take it to a provider for analysis of the stone so that we know what stone he makes we can combat that. #6 GI and DVT prophylaxis in place PDMP PDMP Reviewed: Last Reviewed 07/27/25 06:00 by Shruthi Tuttle MD Attestations 2 Medical Necessity Statement*: Patient with pyelonephritis, renal stones with right renal thrombosis with high inflammatory markers preserves 2 midnights stay for optimization of care. Patient has criteria for inpatient hospitalization. Coding Level of Care Code 60962 Diagnoses Acute pyelonephritis N10 Left flank pain R10.9 Thrombosis vein, renal I82.3 Kidney calculi N20.0 Diabetes type 2 E11.9 Hyperlipidemia E78.5 Hypertension I10 Time Spent (min) 60
[2025-07-27 03:04] LABS: Platelet Count 224 10^3/cmm (157-399)
[2025-07-27] MEDS: heparin 5,000 unit/mL INJ 1 mL IVP ×3 (03:50→18:30)
[2025-07-27] MEDS: heparin drip 25,000 UNIT/500 ML PREMIX 29 UNIT IV (03:51)
[2025-07-27 04:19] LABS: Partial Thromboplastin Time 25.1 SECONDS (23.9-36.7)
--- NOTE | 2025-07-27 09:10 | CTR_ITS ---
PROCEDURE INFORMATION: Exam: CT Abdomen And Pelvis With Contrast Exam date and time: 07/27/2025 10:50 AM Age: 40 years old Clinical indication: Other: Renal thrombosis seen on non contrast CT, please refer to non contrast CT TECHNIQUE: Imaging protocol: Computed tomography of the abdomen and pelvis with contrast. Radiation optimization: All CT scans at this facility use at least one of these dose optimization techniques: automated exposure control; mA and/or kV adjustment per patient size (includes targeted exams where dose is matched to clinical indication); or iterative reconstruction. Contrast material: OMNI 350; Contrast volume: 100 ml; Contrast route: INTRAVENOUS (IV); COMPARISON: CT kidney stone [id number] 07/27/2025 12:05 AM RADIATION DOSE METRICS: Total DLP (mGy-cm): 1031.23 FINDINGS: Lungs: Bibasilar infiltrate and/or atelectasis lungs bilaterally. Evidence of calcified granulomata right lung. On the uppermost axial image, 6-7 mm subsolid nodule right lung base, probably in the lateral right middle lobe, axial series 3, image 1, partially included. Recommend CT Chest at 3-6 months to confirm persistence of the nodule. If unchanged and solid component remains < 6 mm, annual CT Chest should be performed for 5 years. (Reference: Tricia) Liver: Liver appears enlarged, mixed density, slightly hypodense suggesting diffuse fatty liver, hepatic steatosis. Gallbladder and biliary ducts: 9-10 mm rounded soft tissue density filling defect along posterior, dependent gallbladder, possibly soft stone/sludge ball versus polyp or other lesion. Correlation with nonemergent ultrasound scan recommended. No additional gallbladder wall thickening or pericholecystic fluid seen. No bile duct dilatation seen. Pancreas: Pancreas unremarkable. Pancreas unremarkable. Spleen: Spleen appears prominent for size measured at about 15 cm length. Adrenal glands: Adrenals unremarkable. Adrenals unremarkable. Kidneys and ureters: Hypodense foci of the kidneys, too small to accurately characterize. Evidence of left perinephric stranding, fluid extending inferiorly to patient's pelvis on the left side. Evidence of wall thickening and/or enhancement left renal collecting system, left renal pelvis, left ureter. Correlate for pyelo ureteritis or other process. Otherwise, enhancement of kidneys appears fairly symmetric bilaterally. Nonobstructing 7 mm calcific stone right kidney. Stomach and bowel: Stomach appears filled with debris, gas, fluid. Bowel pattern appears nonobstructive. Mild stool and gas and fluid of the colon. Wall thickening versus lack of distension portions of colon. A few diverticula of the colon without current radiographic evidence of acute diverticulitis. Appendix: No acute appendicitis seen. Intraperitoneal space: No free intraperitoneal air seen. Vasculature: Abnormal mixed density, mostly hypodense filling defect and expansion of left renal vein compatible with thrombosis extending for a length of 5-6 cm, extending proximally to at least mid left renal vein. Distal left renal vein and confluence with inferior vena cava appear patent. Some hypodensity, thrombosis of left testicular vein not excluded. Hypodensity, mixed density of proximal femoral veins, common femoral veins, iliac veins bilaterally may be due to admixture of noncontrasted blood and contrasted blood. Atherosclerotic disease, perhaps more advanced than expected for age. No aneurysm seen of abdominal aorta. Lymph nodes: Scattered small lymph nodes, nonspecific. Urinary bladder: Urinary bladder appears filled. Suggestion of mild diffuse wall thickening urinary bladder. Reproductive: Calcifications prostate. Seminal vesicles unremarkable. Bones/joints: Degenerative changes spine. Soft tissues: Tiny fat containing umbilical/periumbilical hernia. CT/CT abdomen pelvis w con* [id number] IMPRESSION: 1. Abnormal mixed density, mostly hypodense filling defect and expansion of left renal vein compatible with thrombosis extending for a length of 5-6 cm, extending proximally to at least mid left renal vein. Distal left renal vein and confluence with inferior vena cava appear patent. Some hypodensity, thrombosis of left testicular vein not excluded. 2. Evidence of left perinephric stranding, fluid extending inferiorly to patient's pelvis on the left side. Evidence of wall thickening and/or enhancement left renal collecting system, left renal pelvis, left ureter. Correlate for pyelo ureteritis or other process. 3. Mild diffuse wall thickening urinary bladder. Correlate for inflammation, cystitis, urinary tract and action, or other process. 4. 9-10 mm rounded soft tissue density filling defect along posterior, dependent gallbladder, possibly soft stone/sludge ball versus polyp or other lesion. Correlation with nonemergent ultrasound scan recommended. 5. Atherosclerotic disease perhaps more advanced than expected for age. Correlate for causes, risk factors for atherosclerotic disease. 6. Hepatosplenomegaly. 7. Diffuse fatty liver, hepatic steatosis. 8. Bibasilar infiltrate and/or atelectasis lung bases. 9. On the uppermost axial image, 6-7 mm subsolid nodule right lung base, probably in the lateral right middle lobe, axial series 3, image 1, partially included. Recommend CT Chest at 3-6 months to confirm persistence of the nodule. If unchanged and solid component remains < 6 mm, annual CT Chest should be performed for 5 years. (Reference: Tricia) 10. Nonobstructing stone/calculus right kidney. 11. Please see body of report for additional findings. REFERENCES: Tricia Rodriguez, et al. Guidelines for Management of Incidental Pulmonary Nodules Detected on CT Images: From the Fleischner Society 2017. Radiology. 2017;284(1):228-243.
[2025-07-27 10:41] LABS: Partial Thromboplastin Time 39.1 SECONDS (23.9-36.7)
[2025-07-27] MEDS: iohexol 350 mg/mL 500 mL Btl (per mL) IV (10:42)
[2025-07-27] MEDS: cefTRIAXone 2,000 mg SDV 2000 MG IVP (11:24)
--- NOTE | 2025-07-27 14:54 | P.PN_ITS ---
Subjective 2 Subjective: Patient still having moderate pain in the flank and into the left groin down into the testicle. He is ambulatory to the bathroom. He still states he has dysuria He is tearful in regards to missing work as he is self-employed. Case management has given him some paperwork but he is too ill to fill this out he needs further assistance Vitals/I&O/Wt Last Vital Signs Temp 98.3 F 07/27/25 12:00 Pulse 86 07/27/25 12:00 Resp 17 07/27/25 12:00 BP 140/89 07/27/25 12:00 Pulse Ox 98 07/27/25 12:00 O2 Del Method Room Air 07/27/25 12:00 O2 Flow Rate 1 07/27/25 01:30 07/26/25 07/27/25 07/27/25 22:59 06:59 14:59 Intake Total 1000 / 1000 1684.233 / 1684.233 Balance 1000 / 1000 1684.233 / 1684.233 Weight last 48 hrs Weight 108.091 kg Weight 106.549 kg Weight 102.058 kg Physical Exam 2 Narrative: Mild mild distress due to flank/abdominal pain. I did see him ambulate to the bathroom. Heart is regular normal S1-S2 without murmurs clicks gallops or rubs lungs clear to auscultation without wheezes rales or rhonchi Abdomen obese soft tenderness in the left lateral flank area sluggish bowel sounds Extremities no clubbing cyanosis or edema Data 07/27/25 02:45 07/26/25 21:17 Micro: Microbiology 07/27/25 02:49 Blood Culture - Preliminary Blood SPECIMEN COLLECTED 07/27/25 02:45 Blood Culture - Preliminary Blood SPECIMEN COLLECTED CT Abd/Pel: Radiologist's impression: CT/CT abdomen pelvis w con* [id number] IMPRESSION: 1. Abnormal mixed density, mostly hypodense filling defect and expansion of left renal vein compatible with thrombosis extending for a length of 5-6 cm, extending proximally to at least mid left renal vein. Distal left renal vein and confluence with inferior vena cava appear patent. Some hypodensity, thrombosis of left testicular vein not excluded. 2. Evidence of left perinephric stranding, fluid extending inferiorly to patient's pelvis on the left side. Evidence of wall thickening and/or enhancement left renal collecting system, left renal pelvis, left ureter. Correlate for pyelo ureteritis or other process. 3. Mild diffuse wall thickening urinary bladder. Correlate for inflammation, cystitis, urinary tract and action, or other process. 4. 9-10 mm rounded soft tissue density filling defect along posterior, dependent gallbladder, possibly soft stone/sludge ball versus polyp or other lesion. Correlation with nonemergent ultrasound scan recommended. 5. Atherosclerotic disease perhaps more advanced than expected for age. Correlate for causes, risk factors for atherosclerotic disease. 6. Hepatosplenomegaly. 7. Diffuse fatty liver, hepatic steatosis. 8. Bibasilar infiltrate and/or atelectasis lung bases. 9. On the uppermost axial image, 6-7 mm subsolid nodule right lung base, probably in the lateral right middle lobe, axial series 3, image 1, partially included. Recommend CT Chest at 3-6 months to confirm persistence of the nodule. If unchanged and solid component remains < 6 mm, annual CT Chest should be performed for 5 years. (Reference: Tricia) 10. Nonobstructing stone/calculus right kidney. 11. Please see body of report for additional findings. A&P Assessment and plan 1. Acute pyelonephritis: - left kidney - Continue IV antibiotics - Await cultures - IV hydration - Pain management with anti-inflammatory using Toradol 30 mg Q6 not to exceed 5 days - Continue morphine 4 mg IV every 4 hours for breakthrough pain 2. Left flank pain: As above 3. Thrombosis vein, renal: Left renal vein Questionable etiology due to infection or other. May require an outpatient thrombotic workup On heparin. Due to patient's self-pay status I recommend warfarin despite need for lab follow-up. If case management or other could assist the patient for approval for a NOAC that would be beneficial. Will hold off on oral medication until we know which oral medications best fit his needs 4. Kidney calculi: In the right kidney. 5. Diabetes type 2: Hold metformin after contrast May use sliding scale insulin 6. Hyperlipidemia: Atorvastatin on hold 7. Hypertension: Lisinopril on hold PDMP PDMP Reviewed: Not Reviewed Attestations 2 Medical Necessity Statement*: Patient requires continued hospitalization that will be greater than 2 midnights due to pyelonephritis and renal vein thrombosis Coding Level of Care Code Acute Code for [facility] Fwd Diagnoses Acute pyelonephritis N10 Left flank pain R10.9 Thrombosis vein, renal I82.3 Kidney calculi N20.0 Diabetes type 2 E11.9 Hyperlipidemia E78.5 Hypertension I10
[2025-07-27 18:11] LABS: Partial Thromboplastin Time 32.2 SECONDS (23.9-36.7)
[2025-07-27] MEDS: heparin drip 25,000 UNIT/500 ML PREMIX 34 UNIT IV (20:24)
[2025-07-28] VITALS (8 sets, daily range): BP systolic 133–171; BP diastolic 71–96; PULSE 75–98; RESP 15–19; TEMP 36.5–37.2; O2SAT 95–99
[2025-07-28 00:57] LABS: Hematocrit 36.0 % (37-53); Hemoglobin 12.20 g/dL (11.27-16.99); Mean Corpuscular HGB Conc 33.9 g/dL (30-55); Mean Corpuscular Hemoglobin 27.5 pg (27-33); Mean Corpuscular Volume 81.3 fl (82-101); Nucleated Red Blood Cells % 0 %; Platelet Count 212 10^3/cmm (157-399); Red Blood Count 4.43 10^6/uL (3.85-5.65); White Blood Count 10.80 10^3/uL (3.29-11.43)
[2025-07-28 01:10] LABS: Partial Thromboplastin Time 39.5 SECONDS (23.9-36.7)
[2025-07-28 01:19] LABS: Alanine Aminotransferase 52 U/L (0-41); Albumin Level 3.0 g/dL (3.5-5.2); Alkaline Phosphatase 200 U/L (40-130); Anion Gap 11.1 (5-19); Aspartate Amino Transferase 40 U/L (0-40); Blood Urea Nitrogen 11 mg/dL (6-20); Calcium 8.4 mg/dL (8.5-10.5); Carbon Dioxide 27 mmol/L (22-29); Chloride 100 mmol/L (98-107); Globulin 2.7 g/dL (1.3-4.6); Glucose 185 mg/dL (65-115); Magnesium 1.6 mg/dL (1.7-2.3); Osmolality Calculated 284 mOsm/kg (285-295); Potassium 3.1 mmol/L (3.5-5.1); Sodium 135 mmol/L (136-145); Total Protein 5.7 g/dL (6.6-8.7)
[2025-07-28] MEDS: heparin 5,000 unit/mL INJ 1 mL IVP ×2 (01:19→08:17)
[2025-07-28 01:42] LABS: Creatinine Clr Calc Pharmacy 197.4437
[2025-07-28] MEDS: magnesium sulfate premix 2 GM/50 ML PIGGYBACK IV (03:29)
[2025-07-28] MEDS: morphine 4 mg/mL SDV 1 mL IVP ×2 (03:52→15:12)
[2025-07-28 07:36] LABS: Partial Thromboplastin Time 34.8 SECONDS (23.9-36.7)
--- NOTE | 2025-07-28 09:30 | PC.CHAP ---
Pastoral Care Encounter/Spiritual Assessment Type of Contact [] Declined director business development visit [] Patient/Family/Request visit [] Outpatient visit [] Follow-up visit [] Physician referral [] Code/Alert [x] Routine visit [] Staff referral [] Actively dying [] Patient sleeping [] Family support [] [] Out of room [] Palliative care [] [] Receiving care in room [] Pre-surgical visit [] Trauma [] Long length of stay [] ICU visit [] Other: Relational/Emotional Strength [] Patient feels connected with others/family/visitors/staff [] Distress [] Loneliness/isolation [] Abandonment Spirituality of Patient [x] Person of Zoila [] Attends Adventist of their [place] [x] Believes in Prayer [] Reads Bible or Mormon materials [] There are Spiritual issues to be addressed Pharmacy Data Analyst Interventions [x] Prayer [x] Active listening [] Non-anxious presence [] Spiritual/emotional support [] Crisis/trauma care [] Spiritual counseling [] Bereavement support [] Provided bereavement packet [x] Provided Bible/devotional materials [] Provided toy/stuffed animal, coloring book to patient or family member [] Provided Communion [] Anointing/[place] [] Salvation [x] Completed spiritual assessment [] Other: Impact on Illness or Injury [] Angry [] Fearful [] Anxious [] Often cries [] Exhaustion [] Unable to work [] Unable to attend synagogue [] Unable to walk/stand [] Unable to read [] Unable to drive [] Unable to eat/drink [] Unable to sleep [] Unable to be with family [] Patient intubated [] Other: Summary Time spent with patient 10 min
--- NOTE | 2025-07-28 10:06 | US_ITS ---
WS: [id number] RIGHT UPPER QUADRANT ULTRASOUND HISTORY: assess for cholecystitis COMPARISON: CT 07/27/2025 Study is limited by body habitus. Liver: 23.6 cm in length. Markedly enlarged liver with heterogeneity. No mass identified. Portal Vein: Normal hepatopetal flow with monophasic waveform. Gallbladder: Gallbladder is not overly distended. There is stones and sludge present. No gallbladder wall thickening. No pericholecystic fluid. CBD: 0.4 cm Pancreas: Obscured by bowel gas. Right kidney: 11.0 cm in length. Limited. Aorta and IVC: Limited. No ascites. US/US gall bladder [id number] IMPRESSION: 1. Quality is limited by body habitus. 2. Normal size gallbladder with stones and sludge. No wall thickening or peric holecystic fluid. No evidence for acute cholecystitis. 3. Hepatomegaly and hepatic steatosis.
[2025-07-28] MEDS: heparin drip 25,000 UNIT/500 ML PREMIX 44 UNIT IV (10:19)
--- NOTE | 2025-07-28 15:32 | PM.PN ---
Subjective Subjective: Patient is quite irritable today and wished to leave AMA this morning. Had an extensive discussion with him regarding the severity of his illness and I recommended patient stay in the hospital. For now he is willing to stay. He was upset about the fact that he is not being allowed to smoke and that he has had too many people coming in for blood draws fingersticks and his care. Medications: Reviewed: Yes Vitals/I&O/Wt Last Vital Signs Temp 97.7 F 07/28/25 10:43 Pulse 89 07/28/25 10:43 Resp 19 H 07/28/25 15:12 BP 171/71 07/28/25 10:43 Pulse Ox 98 07/28/25 10:43 O2 Del Method Room Air 07/28/25 10:43 O2 Flow Rate 1 07/27/25 01:30 07/28/25 07/28/25 07/28/25 06:59 14:59 22:59 Intake Total 1185.500 / 4544.500 1332.833 / 1332.833 500 / 1832.833 Balance 1185.500 / 4544.500 1332.833 / 1332.833 500 / 1832.833 Weight last 48 hrs Weight 109.044 kg Weight 108.091 kg Weight 106.549 kg Weight 102.058 kg Physical Exam Narrative: General: No acute distress, AO x3 HEENT: PERRLA, pupils bilaterally equal and reactive, pallors not present Chest: Normal vesicular breath sounds, no added sounds, equal good air entry bilaterally CVS: S1-S2 regular, no murmurs, no tachycardia, no gallops, no rubs Abdomen: Soft, nontender, no organomegaly, bowel sounds present Neuro: No focal deficits, no facial deformity, AO x3, power 5/5 in all limbs Data 07/28/25 00:40 07/28/25 00:40 Micro: Microbiology 07/26/25 20:51 Urine Culture - Preliminary Urine,Clean Catch Gram Negative Rods 07/27/25 02:49 Blood Culture - Preliminary Blood NEGATIVE TO DATE 07/27/25 02:45 Blood Culture - Preliminary Blood NEGATIVE TO DATE A&P Assessment and plan 1. Acute pyelonephritis: - left kidney - Continue IV antibiotics - Await cultures - IV hydration - Pain management with anti-inflammatory using Toradol 30 mg Q6 not to exceed 5 days - Continue morphine 4 mg IV every 4 hours for breakthrough pain 2. Left flank pain: As above 3. Thrombosis vein, renal: Left renal vein Questionable etiology due to infection or other. May require an outpatient thrombotic workup On heparin. Due to patient's self-pay status I recommend warfarin despite need for lab follow-up. If case management or other could assist the patient for approval for a NOAC that would be beneficial. Will hold off on oral medication until we know which oral medications best fit his needs 4. Kidney calculi: In the right kidney. 5. Diabetes type 2: Hold metformin after contrast May use sliding scale insulin 6. Hyperlipidemia: Atorvastatin on hold 7. Hypertension: Lisinopril on hold Plan: 40 year old male with medical history significant for hyperlipidemia, hypertension, diabetes type 2, history of nephrolithiasis. Patient reports he passed kidney stones 4 times in the last week. He presented to the emergency room on July 27, 2025 after complaining of left flank pain radiating into the left groin that had been going on for the last week. CT of the abdomen and pelvis performed upon admission did not show any obstructing calculi however did show left renal vein thrombosis. Additionally note was made of possible left testicular vein thrombosis. He is currently on a heparin drip There was evidence of left perinephric stranding with enhancement of the left renal collecting system, left renal pelvis and left ureter concerning for Chadd ureteritis. Additionally noted diffuse wall thickening of the urinary bladder concerning for cystitis. His urine culture is so far showing gram-negative rods pending further identification.On ceftriaxone 2g iv q24h empirically which will continue Incidentally noted 9 to 10 mm soft tissue density along the posterior dependent gallbladder. Ultrasound of the gallbladder has been ordered today for further Katter characterization given elevated alkaline phosphatase and AST. Noted diffuse hepatosplenomegaly. While it appears that his left renal vein thrombosis is most likely related to acute infection, possibly septic deep vein thrombosis related to acute infection, given his young age at only 40 years old, further hypercoagulable workup is warranted. Will obtain protein C protein S factor V, anti-dsDNA, cardiolipin antibody, lupus anticoagulant, homocystine levels for hypercoagulable state assessment. Additionally obtain lower extremity ultrasound to assess for additional DVT. CT of the abdomen and pelvis notes 6 to 7 mm subsolid nodule in the right lung base, probably in the lateral right middle lobe. Given history of chronic smoking, however also with the DVT, will assess for lung mass. Initially start of a chest x-ray. If unrevealing we will proceed with CT of the chest. PDMP PDMP Reviewed: Not Reviewed Attestations Medical Necessity Statement*: anticoagulation with heparin drip, ceftriaxone, pending urine cx, pending GB USG Coding Level of Care Code Acute Code for [facility] Fwd Diagnoses Acute pyelonephritis N10 Left flank pain R10.9 Thrombosis vein, renal I82.3 Kidney calculi N20.0 Diabetes type 2 E11.9 Hyperlipidemia E78.5 Hypertension I10
--- NOTE | 2025-07-28 15:38 | XR_ITS ---
WS: [id number] XR chest 1V portable [id number] REASON FOR EXAM: assess for lung mass FINDINGS: Mild tortuosity of the thoracic aorta. Mild cardiomegaly. Calcified granulomatous disease in both hemithoraces. No acute pulmonary parenchymal or pleural abnormality. No lung nodule or lung mass identified. XR/XR chest 1V portable [id number] IMPRESSION: No significant abnormality.
--- NOTE | 2025-07-28 20:27 | PM.CONSULT ---
Providers/Reason For Consult Attending Physician: Ling Nieto MD Primary Care Provider: Mya Armenta History of Present Illness History of Present Illness Mikhail Alford is a 40 year old male Medications/Allergies Home Medications ?Medication ?Instructions ?Recorded ?Confirmed ?Last Taken ?Type aspirin 81 mg tablet,delayed 81 mg PO DAILY 09/05/24 07/27/25 07/26/25 08:00 History release (Adult Low Dose Aspirin) atorvastatin 20 mg tablet 20 mg PO DAILY 09/05/24 07/27/25 07/26/25 08:00 History lisinopril 40 mg tablet 40 mg PO DAILY 09/05/24 07/27/25 07/26/25 08:00 History metformin 500 mg tablet,extended 500 mg PO BID 09/05/24 07/27/25 07/26/25 08:00 History release 24 hr tizanidine 4 mg tablet 4 mg PO Q6H PRN muscle spasticity 09/05/24 07/27/25 Unknown Rx #20 tabs apixaban 5 mg tablet (Eliquis) 5 mg PO BID 30 days #60 tabs 07/28/25 Unknown Rx Allergies Allergy/AdvReac Type Severity Reaction Status Date / Time peanut butter Allergy ALGY-Rash Uncoded 07/27/25 03:25 Current Medications Generic Name Dose Route Start Last Admin Trade Name Freq PRN Reason Stop Dose Admin Acetaminophen 650 mg 07/27/25 03:09 07/28/25 17:21 Acetaminophen 325 Mg Tablet PO 650 mg Q6H PRN Administration Mild/Mod Pain Or Temp >/= 101 Apixaban 10 mg 07/28/25 17:00 07/28/25 17:18 Apixaban 5 Mg Tablet PO 10 mg BID@0500,1700 VALENTINO Administration Ceftriaxone Sodium 2,000 mg 07/27/25 12:00 07/28/25 13:04 Ceftriaxone 2,000 Mg Sdv IVP Not Given Q24H VALENTINO Protocol Docusate Sodium 100 mg 07/27/25 17:00 07/28/25 17:18 Docusate Sodium 100 Mg Capsule PO 100 mg BID@0500,1700 VALENTINO Administration Insulin Human Lispro 0 unit 07/27/25 18:00 07/28/25 17:18 Insulin Lispro 100 Unit/1 Ml SUBCUT 12 unit WM&BEDTIME VALENTINO Administration Protocol Lisinopril 40 mg 07/28/25 13:15 07/28/25 17:18 Lisinopril 20 Mg Tablet PO 40 mg DAILY VALENTINO Administration Morphine Sulfate 4 mg 07/27/25 03:09 07/28/25 15:12 Morphine 4 Mg/Ml Sdv 1 Ml IVP 4 mg Q4H PRN Administration SEVERE PAIN Nicotine 1 patch 07/27/25 16:43 07/28/25 08:17 Nicotine 21 Mg Patch TRANSDERMA 1 patch DAILY VALENTINO Administration Tizanidine HCl 4 mg 07/27/25 15:04 07/27/25 16:53 Tizanidine 4 Mg Tablet PO 4 mg Q6H PRN Administration muscle spasticity Vitals/I&O/Wt Last Vital Signs Temp 98.3 F 07/28/25 16:00 Pulse 98 07/28/25 16:00 Resp 18 07/28/25 16:00 BP 159/90 07/28/25 16:00 Pulse Ox 97 07/28/25 16:00 O2 Del Method Room Air 07/28/25 16:00 O2 Flow Rate 1 07/27/25 01:30 07/28/25 07/28/25 07/28/25 06:59 14:59 22:59 Intake Total 1185.500 / 4544.500 1332.833 / 1332.833 740 / 2072.833 Balance 1185.500 / 4544.500 1332.833 / 1332.833 740 / 2072.833 Weight last 48 hrs Weight 109.044 kg Weight 108.091 kg Weight 106.549 kg Data 07/28/25 00:40 07/28/25 00:40 Micro: Microbiology 07/26/25 20:51 Urine Culture - Preliminary Urine,Clean Catch Gram Negative Rods 07/27/25 02:49 Blood Culture - Preliminary Blood NEGATIVE TO DATE 07/27/25 02:45 Blood Culture - Preliminary Blood NEGATIVE TO DATE A&P PDMP PDMP Reviewed: Not Reviewed Coding Level of Care Code Acute Code for [facility]
[2025-07-28] MEDS: insulin glargine 100 units/1 mL 20 UNIT SUBCUT (20:40)
[2025-07-29 03:48] VITALS: BP 116/79; PULSE 75; RESP 16; TEMP 36.7; O2SAT 94
[2025-07-29 05:08] VITALS: RESP 16
[2025-07-29] MEDS: morphine 4 mg/mL SDV 1 mL IVP (05:08)
[2025-07-29 05:13] LABS: Hematocrit 35.9 % (37-53); Hemoglobin 12.00 g/dL (11.27-16.99); Mean Corpuscular HGB Conc 33.4 g/dL (30-55); Mean Corpuscular Hemoglobin 27.3 pg (27-33); Mean Corpuscular Volume 81.6 fl (82-101); Nucleated Red Blood Cells % 0 %; Platelet Count 242 10^3/cmm (157-399); Red Blood Count 4.40 10^6/uL (3.85-5.65); White Blood Count 11.61 10^3/uL (3.29-11.43)
[2025-07-29 05:40] LABS: Alanine Aminotransferase 66 U/L (0-41); Albumin Level 2.9 g/dL (3.5-5.2); Alkaline Phosphatase 229 U/L (40-130); Anion Gap 15.5 (5-19); Aspartate Amino Transferase 42 U/L (0-40); Blood Urea Nitrogen 9 mg/dL (6-20); Calcium 8.5 mg/dL (8.5-10.5); Carbon Dioxide 26 mmol/L (22-29); Chloride 97 mmol/L (98-107); Creatinine Clr Calc Pharmacy 237.9701; Globulin 2.8 g/dL (1.3-4.6); Glucose 296 mg/dL (65-115); Magnesium 1.7 mg/dL (1.7-2.3); Osmolality Calculated 290 mOsm/kg (285-295); Potassium 3.5 mmol/L (3.5-5.1); Sodium 135 mmol/L (136-145); Total Protein 5.7 g/dL (6.6-8.7)
[2025-07-29 08:03] VITALS: BP 133/89; PULSE 71; RESP 18; TEMP 36.4; O2SAT 96
[2025-07-29 09:51] LABS: Creatinine Urine, Random 215 mg/dL (39-259); Total Protein, Random Urine 36.2 mg/dL (0.0-20.0)
[2025-07-29 10:04] LABS: Microalbum Creatinine Ratio Ur 47 mg/dL (0-20)
--- NOTE | 2025-07-29 10:12 | PC.NURSE ---
Patient was adamant about leaving AMA. Patient was educated on the risks of going home without getting a full picture of their medical problems. Patient stated they understood and still wanted to leave AMA.
--- NOTE | 2025-07-29 15:20 | P.DS_ITS ---
Discharge Providers Date of Admission: 07/27/25 02:39 Date of Discharge: July 29, 2025 Attending Provider at Admission: Michelle Colon MD Attending Provider at Discharge: Ling Nieto MD Primary Care Provider: Mya Armenta Diagnoses at Discharge Discharge Diagnosis 1. Acute pyelonephritis: 2. Left flank pain: 3. Thrombosis vein, renal: 4. Kidney calculi: 5. Diabetes type 2: 6. Hyperlipidemia: 7. Hypertension: Reason for Visit Reason for Visit: Possible kidney stones. hurts Lt side back and Hospital Course Hospital Course 40 year old male with medical history significant for hyperlipidemia, hypertension, diabetes type 2, history of nephrolithiasis. Patient reports he passed kidney stones 4 times in the last week. He presented to the emergency room on July 27, 2025 after complaining of left flank pain radiating into the left groin that had been going on for the last week. CT of the abdomen and pelvis performed upon admission did not show any obstructing calculi however did show left renal vein thrombosis. Additionally note was made of possible left testicular vein thrombosis. He received treatment with heparin drip, transitioned to Po Eliquis. There was evidence of left perinephric stranding with enhancement of the left renal collecting system, left renal pelvis and left ureter concerning for Pyelolo ureteritis. Additionally noted diffuse wall thickening of the urinary bladder concerning for cystitis. His urine culture showed gram-negative rods pending further identification.He received ceftriaxone 2g iv q24h empirically, cx were awaited at the time he left AMA. Incidentally noted 9 to 10 mm soft tissue density along the posterior dependent gallbladder. Ultrasound of the gallbladder ruled out cholecystitis or cholangitis. While it appeared that his left renal vein thrombosis is most likely related to acute infection, possibly septic deep vein thrombosis related to acute infection, given his young age at only 40 years old, further hypercoagulable workup was ordered. Venous duplex was negative. CT of the abdomen and pelvis noted 6 to 7 mm subsolid nodule in the right lung base, probably in the lateral right middle lobe. Given history of chronic smoking, concern for malignancy, CXR negative,was planned for CT chest however elected to leave AMA. He was made aware o fthe dangers of leaving AMA on multiple occasions however expressed frustration related to being unable to smoke, lack on insurance and elected to leave AMA today. He was given prescriptions for Eliquis and Ciprofloxacin at discharge as he is likely to have major morbidity without these medications to treat his acute issues. Highly recommended to f/up with PCP for follow up. Physical Exam Narrative: Left AMA prior to exam Discharge Data Studies Completed and Pending Completed Studies During Hospitalization Category Date Time Status CT abdomen pelvis w con* [id number] Stat Cat Scan 07/27/25 09:[address] kidney stone 04365 Stat Cat Scan 07/26/25 23:29 Completed CXRP [XR chest 1V portable [id number]] Routine Exams 07/28/25 15:38 [place] [id number] Routine Ultrasound 07/29/25 15:35 Completed US gall bladder [id number] Routine Ultrasound 07/28/25 10:06 Completed Pending at discharge Category Date Time Status LIBERTY Profile Rheumatology AM LABS Lab 07/29/25 04:57 Received Anti Double Stranded DNA AB DAILY Lab 07/29/25 04:57 Received Blood Culture Stat Lab 07/27/25 02:49 Results CARDIOLIPIN AB (IGA,IGG,IGM) AM LABS Lab 07/29/25 04:57 Received Factor 5 Leiden Mutation AM LABS Lab 07/29/25 04:57 Received HBA1C [Hemoglobin A1C] AM LABS Lab 07/29/25 04:57 Received HBA1C [Hemoglobin A1C] Routine Lab 07/28/25 00:40 Received Lupus Inhibitor Panel Anticoag AM LABS Lab 07/29/25 04:57 Received PROTEIN C, ACTIVITY AM LABS Lab 07/29/25 04:57 Received PROTEIN S, ACTIVITY AM LABS Lab 07/29/25 04:57 Received Radiology Impressions Abdomen/Pelvis CT 07/27/25 09:10 IMPRESSION: 1. Abnormal mixed density, mostly hypodense filling defect and expansion of left renal vein compatible with thrombosis extending for a length of 5-6 cm, extending proximally to at least mid left renal vein. Distal left renal vein and confluence with inferior vena cava appear patent. Some hypodensity, thrombosis of left testicular vein not excluded. 2. Evidence of left perinephric stranding, fluid extending inferiorly to patient's pelvis on the left side. Evidence of wall thickening and/or enhancement left renal collecting system, left renal pelvis, left ureter. Correlate for pyelo ureteritis or other process. 3. Mild diffuse wall thickening urinary bladder. Correlate for inflammation, cystitis, urinary tract and action, or other process. 4. 9-10 mm rounded soft tissue density filling defect along posterior, dependent gallbladder, possibly soft stone/sludge ball versus polyp or other lesion. Correlation with nonemergent ultrasound scan recommended. 5. Atherosclerotic disease perhaps more advanced than expected for age. Correlate for causes, risk factors for atherosclerotic disease. 6. Hepatosplenomegaly. 7. Diffuse fatty liver, hepatic steatosis. 8. Bibasilar infiltrate and/or atelectasis lung bases. 9. On the uppermost axial image, 6-7 mm subsolid nodule right lung base, probably in the lateral right middle lobe, axial series 3, image 1, partially included. Recommend CT Chest at 3-6 months to confirm persistence of the nodule. If unchanged and solid component remains < 6 mm, annual CT Chest should be performed for 5 years. (Reference: Tricia) 10. Nonobstructing stone/calculus right kidney. 11. Please see body of report for additional findings. REFERENCES: Tricia Rodriguez, et al. Guidelines for Management of Incidental Pulmonary Nodules Detected on CT Images: From the Fleischner Society 2017. Radiology. 2017;284(1):228-243. Gallbladder Ultrasound 07/28/25 10:06 IMPRESSION: 1. Quality is limited by body habitus. 2. Normal size gallbladder with stones and sludge. No wall thickening or pericholecystic fluid. No evidence for acute cholecystitis. 3. Hepatomegaly and hepatic steatosis. Chest X-Ray 07/28/25 15:38 IMPRESSION: No significant abnormality. Laboratory Results WBC 11.61 10^3/uL (3.29-11.43) H 07/29/25 04:57 RBC 4.40 10^6/uL (3.85-5.65) 07/29/25 04:57 Hgb 12.00 g/dL (11.27-16.99) 07/29/25 04:57 Hct 35.9 % (37-53) L 07/29/25 04:57 MCV 81.6 fl (82-101) L 07/29/25 04:57 MCH 27.3 pg (27-33) 07/29/25 04:57 MCHC 33.4 g/dL (30-55) 07/29/25 04:57 RDW 13.4 % (12.1-15.1) 07/29/25 04:57 Plt Count 242 10^3/cmm (157-399) 07/29/25 04:57 MPV 9.9 fL (7.4-10.4) 07/29/25 04:57 Neut % (Auto) 71.9 % 07/29/25 04:57 Lymph % (Auto) 18.2 % 07/29/25 04:57 [place] % (Auto) 6.4 % 07/29/25 04:57 Eos % (Auto) 1.6 % 07/29/25 04:57 Baso % (Auto) 0.4 % 07/29/25 04:57 Neut # (Auto) 8.36 10^3/uL (1.8-7.7) H 07/29/25 04:57 Lymph # (Auto) 2.1 10^3/uL (0.8-4.8) 07/29/25 04:57 [place] # (Auto) 0.7 10^3/uL (0.2-0.9) 07/29/25 04:57 Eos # (Auto) 0.2 10^3/uL (0.0-0.8) 07/29/25 04:57 Baso # (Auto) 0.1 10^3/uL (0.0-0.1) 07/29/25 04:57 Nucleated RBC % (auto) 0 % 07/29/25 04:57 Nucleated RBCs # 0.0 /100WBC 07/29/25 04:57 APTT 34.8 SECONDS (23.9-36.7) 07/28/25 06:59 Sodium 135 mmol/L (136-145) L 07/29/25 04:57 Potassium 3.5 mmol/L (3.5-5.1) 07/29/25 04:57 Chloride 97 mmol/L (98-107) L 07/29/25 04:57 Carbon Dioxide 26 mmol/L (22-29) 07/29/25 04:57 Anion Gap 15.5 (5-19) 07/29/25 04:57 BUN 9 mg/dL (6-20) 07/29/25 04:57 Creatinine 0.5 mg/dL (0.7-1.2) L 07/29/25 04:57 GFR Calculation 182.3 mL/min (90-130) H 07/29/25 04:57 Glucose 296 mg/dL (65-115) H 07/29/25 04:57 POC Glucose 317 mg/dL (70-110) H 07/29/25 06:29 Calculated Osmolality 290 mOsm/kg (285-295) 07/29/25 04:57 Calcium 8.5 mg/dL (8.5-10.5) 07/29/25 04:57 Phosphorus 2.9 mg/dL (2.5-4.5) 07/28/25 00:40 Magnesium 1.7 mg/dL (1.7-2.3) 07/29/25 04:57 Total Bilirubin 0.3 mg/dL (0.15-1.2) 07/29/25 04:57 AST 42 U/L (0-40) H 07/29/25 04:57 ALT 66 U/L (0-41) H 07/29/25 04:57 Alkaline Phosphatase 229 U/L (40-130) H 07/29/25 04:57 C-Reactive Protein 99.1 mg/L (0.0-4.9) H 07/26/25 21:17 Total Protein 5.7 g/dL (6.6-8.7) L 07/29/25 04:57 Albumin 2.9 g/dL (3.5-5.2) L 07/29/25 04:57 Globulin 2.8 g/dL (1.3-4.6) 07/29/25 04:57 Lipase 27 U/L (13-60) 07/26/25 21:17 Homocysteine 6.08 umol/l (0-15) 07/29/25 04:57 Urine Color Dark yellow (Yellow) A 07/26/25 20:51 Urine Appearance Turbid (CLEAR) A 07/26/25 20:51 Urine pH 6.0 (5-7) 07/26/25 20:51 Ur Specific [place] 1.032 (1.005-1.030) H 07/26/25 20:51 Urine Protein 2+ (Negative) A 07/26/25 20:51 Urine Glucose (UA) Trace (Normal) H 07/26/25 20:51 Urine Ketones Trace (Negative) 07/26/25 20:51 Urine Blood Non-haemolysed trace (Negative) 07/26/25 20:51 Urine Nitrate Negative (Negative) 07/26/25 20:51 Urine Bilirubin Negative (Negative) 07/26/25 20:51 Urine Urobilinogen 1.0 mg/dL (Negative) 07/26/25 20:51 Ur Leukocyte Esterase 2+ (Negative) A 07/26/25 20:51 Urine RBC 0-2 /hpf (0-2) 07/26/25 20:51 Urine WBC >100 /hpf (0-5) H 07/26/25 20:51 Ur Squamous Epith Cells 0-5 /hpf (0-5) 07/26/25 20:51 Amorphous Sediment Not Reportable 07/26/25 20:51 Urine Bacteria 4+ /hpf (NONE) H 07/26/25 20:51 Hyaline Casts 3.01 /lpf 07/26/25 20:51 Ur Random Microalbumin 10 ug/dL (0-20) 07/29/25 09:09 Urine Creatinine 215 mg/dL (39-259) 07/29/25 09:09 Microalb/Creat Ratio 47 mg/dL (0-20) H 07/29/25 09:09 Urine Total Protein 36.2 mg/dL (0.0-20.0) H 07/29/25 09:09 Vitals Last Vital Signs Temp 97.6 F 07/29/25 08:03 Pulse 71 07/29/25 08:03 Resp 18 07/29/25 08:03 BP 133/89 07/29/25 08:03 Pulse Ox 96 07/29/25 08:03 O2 Del Method Room Air 07/29/25 08:03 O2 Flow Rate 1 07/27/25 01:30 Discharge Plan Discharge Patient Disposition: Left Against Medical Advice Condition: Stable Prescriptions: New Eliquis 5 mg tablet 5 mg PO BID 30 Days Qty: 60 2RF Rx Instructions: take 10mg BID for 10 days, then reduce dose to 5mg BID for 3 months ciprofloxacin HCl 500 mg tablet 500 mg PO BID 7 Days Qty: 14 0RF No Action atorvastatin 20 mg tablet 20 mg PO DAILY aspirin [Adult Low Dose Aspirin] 81 mg tablet,delayed release (DR/EC) 81 mg PO DAILY lisinopril 40 mg tablet 40 mg PO DAILY metformin 500 mg tablet extended release 24 hr 500 mg PO BID tizanidine 4 mg tablet 4 mg PO Q6H PRN (Reason: muscle spasticity) Qty: 20 0RF Rx Instructions: do not exceed 3 doses per 24 hrs Referrals: Mya Armenta [employer] [Primary Care Provider, Nurse Practitioner] Discharge Diet: Full LIquid Patient Instructions: Urinary Tract Infection in Men (ED), Renal Colic (ED) Discharge Attestations Time Spent in Discharge Care*: greater than 30 min Quality Metrics Clinical Quality Measures [ Venous Thromboembolism { Contraindication to Overlap Therapy: None; Overlap threrpy ordered; VTE Discharge Education: Education about anticoagulant therapy/Care Notes given, Education about treatment options/disease process, Other (left AMA ); Deep Vein Thrombosis/Pulmonary Embolism Present on Admission: Yes;}] Coding Level of Care Code Acute Code for g Fwd Diagnoses Acute pyelonephritis N10 Left flank pain R10.9 Thrombosis vein, renal I82.3 Kidney calculi N20.0 Diabetes type 2 E11.9 Hyperlipidemia E78.5 Hypertension I10
--- NOTE | 2025-07-29 15:35 | USCV_ITS ---
Mikhail Alford Age: 40 Gender: M : 1985 Exam Date: 07/29/2025 09:10 Ordering Phys: Ling Nieto MD Technologist: JOSÉ LUIS Exam Location: [facility] [place] Indication: r/o dvt HISTORY: r/o dvt PROCEDURES: Venous duplex imaging was performed in bilateral lower extremities. The following venous structures were evaluated: common femoral vein, profunda vein, proximal portion of the greater saphenous vein, superficial femoral vein, and the popliteal vein. In addition, the posterior tibial and peroneal trunk were evaluated. Serial compression, augmentation maneuvers, and spectral Doppler flow evaluation were performed. FINDINGS: Normal 2-D Doppler and augmentation and compressibility throughout the lower extremity venous structures. Additional imaging through the proximal calf veins also reveals no thrombus. Limited evaluation of the greater saphenous vein is patent with no thrombus. CONCLUSIONS No DVT bilateral lower extremities. Dr. Edwina Weeks DO (Electronically Signed) Final Date: 29 July 2025 11:00 S
[2025-07-30 07:26] LABS: Anti-Double Strand DNA AB <1 IU/mL
[2025-07-30 13:18] LABS: Estmated Average Glucose 321; Hemoglobin A1C 12.8 % (4.0-6.0)
[2025-07-30 13:55] LABS: Estmated Average Glucose 318; Hemoglobin A1C 12.7 % (4.0-6.0)
[2025-07-30 14:14] LABS: COMPLEMENT, TOTAL (CH50) >60 U/mL (31-60)
[2025-07-31 03:00] LABS: COMPLEMENT COMPONENT C3C 251 mg/dL (82-185); COMPLEMENT COMPONENT C4C 23 mg/dL (15-53)
[2025-07-31 07:40] LABS: CENTROMERE B ANTIBODY <1.0 NEG AI (<1.0 NEG); JO-1 ANTIBODY <1.0 NEG AI (<1.0 NEG); RNP ANTIBODY <1.0 NEG AI (<1.0 NEG); SCL-70 ANTIBODY <1.0 NEG AI (<1.0 NEG); SS-B <1.0 NEG AI (<1.0 NEG)
[2025-07-31 19:40] LABS: PROTEIN S, ACTIVITY 107 % normal (70-150)
[2025-07-31 20:46] LABS: PTT-LA-Screen 47 sec (< OR = 40)
[2025-07-31 20:54] LABS: Lupus Hexagonal Phas Confirm NEGATIVE (NEGATIVE)
--- NOTE | 2025-08-01 04:36 | DCPLANNER ---
Referral sent to [facility] urology
--- NOTE | 2025-08-01 04:39 | DCPLANNER ---
Referral sent to [facility] urology
[2025-08-01 11:39] LABS: THYROID PEROXIDASE ANTIBODIES <1 IU/mL (<9)
[2025-08-01 21:40] LABS: PROTEIN C, ACTIVITY 141 % normal (70-180)
== END 2025-07-29 10:08 | disposition left against medical advice (07) | DRG 690 ==
LOC: ER 07-27 02:21 → MEDSURG 07-27 03:04
PROVIDERS: Hospitalist; Internal Medicine; Admitting Provider Internal Medicine; Emergency Provider Emergency Medicine; PCP Nurse Practitioner Family; Visit Provider Student in an Organized Health Care Education/Training Program
DX: N10 Acute pyelonephritis (principal); I82.3 Embolism and thrombosis of renal vein; N20.0 Calculus of kidney; E11.9 Type 2 diabetes mellitus without complications; E78.5 Hyperlipidemia, unspecified; I10 Essential (primary) hypertension; E66.9 Obesity, unspecified; Z68.34 Body mass index [BMI] 34.0-34.9, adult; Z79.01 Long term (current) use of anticoagulants; Z87.442 Personal history of urinary calculi
CPT/HCPCS: 36415; 36416; 71045; 74176; 74177; 76705; 80053; 81001; 81241; 82044; 82962; 83036; 83090; 83690; 83735; 84100; 84156; 85025; 85049; 85303; 85306; 85613; 85730; 86140; 86147; 86160; 86162; 86225; 86235; 86255; 86376; 87040; 87077; 87086; 87186; 93970; 96365; 96372; 96375; 99285; J0696; J1644; J1815; J1885; J2270; J2405; J3475; J7030; J7120; J9999